=== PATIENT | male | born 1975 | race Caucasian/White ===

== ENCOUNTER → 2017-11-09 | Outpatient (CLI) | payer OTHER ==
[~2017-11-09] MED LIST: ALLO100T PO; ATOR-54 PO; CYCL10TA6 PO; CZR25 PO; DSY/150 PO; DULO60CA44 PO; FENO1TAB24 PO; FLNIN/ NAE; LEVO75TA5 PO; METF500T PO; NRN600 PO; PANT40TA PO; TRAM-10 PO
[2017-11-10 06:38] LABS: HEMOGLOBIN A1C 6.2 % (4.5-5.6)
== END | disposition home or self-care (01) ==
LOC: C.LAB1850 13:53
PROVIDERS: ATTEND Nurse Practitioner Family
DX: E11.21 Type 2 diabetes mellitus with diabetic nephropathy (principal)